=== PATIENT | male | born 1960 | race Caucasian/White ===

== ENCOUNTER 2024-01-02 06:52 | Emergency (ER) | payer BC ==
[~2024-01-02] VITALS: Ht 152.4 cm; Wt 68.0 kg
[2024-01-02 07:00] VITALS: O2SAT 98
[2024-01-02] MEDS: LIDOCAINE HCL/PF 1% 10 MG/ML 5ML VIAL INFIL ONE (09:00)
[2024-01-02] MEDS ORDERED: CEPH500C2 MT (09:26)
[2024-01-02] MEDS ORDERED: SULF1TAB48 MT (09:26)
[2024-01-02] MEDS ORDERED: IBUP-2029 MT (09:27)
[2024-01-02 09:36] VITALS: BP 133/80; PULSE 99; RESP 18; TEMP 36.78072; O2SAT 98
== END 2024-01-02 09:53 | disposition home or self-care (01) ==
LOC: ER 06:52
DX: N49.2 Inflammatory disorders of scrotum (principal)
CPT/HCPCS: 93976; 76870; 54700; 99284; J3490; Z7610 ×3; 10060

== ENCOUNTER → 2024-08-12 | Outpatient (CLI) | payer BC ==
[~2024-08-12] MED LIST: CEPH500C2 MT; IBUP-2029 MT; SULF1TAB48 MT
[2024-08-12 09:49] LABS: BASOPHILS % 0.7 % (0.0-2.0); HEMATOCRIT. 34.7 % (42.0-52.0); LYMPHOCYTES % 21.3 % (20.0-50.0); MEAN CORPUSCULAR HEMOGLOBIN 30.9 pg (28.0-32.0); MEAN CORPUSCULAR HGB CONC 34.5 g/dL (31.0-37.0); MEAN CORPUSCULAR VOLUME 89.5 fL (80.0-94.0); MEAN PLATELET VOLUME 8.7 fl (7.4-10.4); MONOCYTES % 6.4 % (2.0-8.0); NEUTROPHILS % 68.6 % (40.0-76.0); PLATELET 99 x1000/uL (130-400); RED BLOOD CELL COUNT 3.88 mill/uL (4.7-6.1); RED CELL DISTRIBUTION WIDTH 13.2 % (11.6-14.6); WHITE BLOOD COUNT 4.8 x1000/uL (4.5-11.0)
[2024-08-12 10:04] LABS: PARTIAL THROMBOPLASTIN TIME 28.1 sec (23.4-31.0); PROTHROMBIN TIME 10.8 sec (9.6-11.0)
[2024-08-12 10:11] LABS: IRON 144 ug/dL (65-175); URIC ACID 5.9 mg/dL (3.7-9.2)
[2024-08-12 10:12] LABS: LDL CHOLESTEROL 88 mg/dL (5-100); TRIGLYCERIDE 79 mg/dL (0-150)
[2024-08-12 10:13] LABS: ALANINE AMINOTRANSFERASE 105 IU/L (10-49); ALBUMIN 3.8 g/dL (3.2-4.8); ASPARTATE AMINOTRANSFERASE 67 IU/L (<34); BILIRUBIN DIRECT 0.3 mg/dL (<=3.0); C REACTIVE PROTEIN HIGH SENS 0.53 mg/l (<1.00); CHOLESTEROL 144 mg/dL (<200); HDL CHOLESTEROL 43 mg/dL (>55)
[2024-08-12 10:14] LABS: BILIRUBIN TOTAL 1.2 mg/dL (0.1-1.0); PROTEIN TOTAL 7.1 g/dL (6.0-8.3); TOTAL IRON BINDING CAPACITY 383 ug/dl (250-425)
[2024-08-12 10:15] LABS: CLARITY URINE CLEAR (CLEAR); COLOR URINE YELLOW (YELLOW); GLUCOSE URINE 3+ (NEGATIVE); KETONES URINE NEGATIVE (NEGATIVE); LEUKOCYTE ESTERASE URINE NEGATIVE (NEGATIVE); NITRITE URINE NEGATIVE (NEGATIVE); OCCULT BLOOD URINE TRACE (NEGATIVE); PH URINE 6.5 (4.5-8.0); PROTEIN URINE 4+ (NEGATIVE); SPECIFIC GRAVITY URINE 1.027 (1.005-1.030)
[2024-08-12 10:16] LABS: THYROID STIMULATING HORMONE 1.35 uIU/mL (0.55-4.78)
[2024-08-12 10:30] LABS: BACTERIA URINE 1+; RBC URINE 0-2 /hpf (0-2); SQUAMOUS EPITHELIAL CELL URINE NONE SEEN /lpf (RARE/1+); WBC URINE 0-2 /hpf (0-2); YEAST URINE NONE SEEN
[2024-08-12 10:41] LABS: ERYTHROCYTE SEDIMENTATION RATE 38 mm/hr (0-20)
[2024-08-12 12:34] LABS: HEPATITIS B SURFACE ANTIGEN NEGATIVE (Negative)
[2024-08-12 12:51] LABS: HEPATITIS A AB IGM NEGATIVE (Negative)
[2024-08-12 12:52] LABS: HEPATITIS B CORE AB IGM NEGATIVE (Negative)
[2024-08-12 13:46] LABS: HEPATITIS C AB REACTIVE (Pos) (Negative)
[2024-08-13 09:07] LABS: HBSAG SCREEN Negative (Negative); HEPATITIS B CORE ANTIBODY Negative (Negative); PROSTATE SPECIFIC AG TOTAL 0.6 ng/mL (0.0-4.0); TRANSFERRIN 280 mg/dL (177-329)
[2024-08-13 10:09] LABS: VITAMIN D 25-OH 19.4 ng/mL (30.0-100.0)
== END | disposition home or self-care (01) ==
LOC: LAB 08-11 12:13
DX: R05.9 Cough, unspecified (principal); H26.9 Unspecified cataract
CPT/HCPCS: 36415; 71046; 80061; 80074; 80076; 81001; 81003; 82306; 83540; 83550; 84100; 84153; 84439; 84443; 84466; 84481; 84550; 85025; 85651; 86141; 86704; 86705; 86709; 86900; 87340